=== PATIENT | female | born 1995 | race American Indian/Alaskan Native ===

== ENCOUNTER 2018-10-27 12:40 | Inpatient (IN) | payer MEDICAID ==
[2018-10-27] MEDS ORDERED: NITRATEST PAPER MC ONE (13:08)
[2018-10-27 13:38] LABS: Bilirubin,Urine NEG (Negative); Blood,Urine NEG (Negative); Calcium Oxalate Crystals,Urine 2+; Color,Urine Yellow (Yellow); Mucus,Urine 1+ /HPF
[2018-10-27] MEDS ORDERED: MINERAL OIL PO PRN (14:49)
[2018-10-27] MEDS ORDERED: ZOFRAN IV PRN (14:49)
[2018-10-27] MEDS ORDERED: BRETHINE IVP PRN (14:49)
[2018-10-27] MEDS ORDERED: BRETHINE SUB-Q PRN (14:49)
[2018-10-27] MEDS ORDERED: PITOCin/NS 20 UNIT/1000ML DRIP 20 UNITS/1,000 ML BAG IV SCH (15:00)
[2018-10-27] MEDS ORDERED: XYLOCAINE 2% INFILTRATI ONE (16:00)
[2018-10-27 16:35] LABS: Hematocrit 31.2 % (30.3-42.9); Hemoglobin 10.8 gm/dl (10.1-14.3); Mean Corpuscular HGB Conc 35 % (30-34); Mean Corpuscular Volume 91 fl (79-97); Platelet Count 200 K/mm3 (140-440); Red Blood Count 3.42 M/mm3 (3.65-5.03); Red Cell Distribution Width 14.3 % (13.2-15.2)
--- NOTE | 2018-10-27 18:17 | Ultrasound Report ---
US OB limited INDICATION: presentation, FLORIAN. COMPARISON: None available. FINDINGS: The amniotic fluid index measures 9.7 cm, which is normal. presentation is cephalic. hear t rate measures 143 bpm. Signer Name: Stalin Bach MD Signed: 10/27/2018 6:12 PM Workstation Name: [id number]
[2018-10-27] MEDS: LACTATED RINGERS 1,000 ML IV SCH (18:33)
[2018-10-27] MEDS ORDERED: PITOCin/NS 30 UNIT/500ML 30 UNITS/500 ML BAG IV SCH (19:00)
--- NOTE | 2018-10-27 19:38 | History and Physical Report ---
History of Present Illness Date of examination: 10/27/18 Date of admission: 10/27/18 16:09 Chief complaint: SROM History of present illness: Menstrual History Regularity: regular Menses every: 28 days Duration: 5 LMP: 02/05/2018 LMP reliability: definite LMP character: normal test type: urine test Date: 04/22/2018 BC at conception: none Planned ? no EDC Calculations LMP: 11/12/2018 EDC Confirmation: 11/12/2018 Gestational Age: 10 6/7 weeks Past History : 1 Term Births: 0 Premature Births: 0 Living Children: 0 Para: 0 Mult. Births: 0 Prev : 0 Prev. attempt? 0 Aborta: 0 Elect. Ab: 0 Spont. Ab: 0 Ectopics: 0 Past Medical History: Negative Past Medical History Past Surgical History: negative Past Medical History Anesthesia Complications: negative Anemia: negative Autoimmune Disorder: negative Bleeding Disorder: negative Blood Transfusions: negative Breast Disease: negative Diabetes: negative Heart Disease: negative Hypertension: negative Hepatitis/Liver Disease: negative Kidney Disease/UTI: negative Neurologic/Epilepsy/Migraines: negative Phlebitis/Varicosities: negative Psychiatric: negative Pulmonary Disease/Asthma: negative Thyroid Disease: negative Hospitalizations: negative Surgery (Non-club manager): negative Abnormal PAP: negative Family Hx: Crohns dx - mother and sister Social Hx: Single no ETOH/Drugs/Smoking Infection History Hx of STD: none HIV Risk Eval: low risk Hepatitis B Risk Eval: low risk Varicella/Chicken Pox Status: Unknown Genetic History Congenital Heart Defect: Mom: no Dad: no Moni Disease: Mom: no Dad: no Thalassemia Mom: no Dad: no Neural Tube Defect Mom: no Dad: no Down's Syndrome Mom: no Dad: no Hakeem-Sachs Mom: no Dad: no Sickle Cell Disease/Trait Mom: no Dad: no Hemophilia Mom: no Dad: no Muscular Dystrophy Mom: no Dad: no Cystic Fibrosis Mom: no Dad: no Bar[place] Chorea Mom: no Dad: no Mental Retardation Mom: no Dad: no Fragile X Mom: no Dad: no Other Genetic/Chromosomal Disorder Mom: no Dad: no Child w/other defect Mom: no Dad: no Enviromental Exposures Xray Exposure: no Medication, drug, or alcohol use since LMP: no Chemical/Other Exposure: no Exposure to Cat Liter: no Hx of Parvovirus (Fifth Disease): no Occupational Exposure to Children: none Active Medications: PLUS 27-1 MG ORAL TABLET ( VIT-FE FUMARATE-FA) 1 po daily Current Allergies (reviewed today): * PENICILLAN (Critical) Past History Past Medical History: other (see HPI) Past Surgical History: other (see HPI) 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 (see HPI) Family/Genetic History: other (see HPI) Social history: other (see HPI) - Obstetrical History Expected Date of Delivery: 11/12/18 Actual Gestation: 37 Week(s) 5 Day(s) : 1 Para: 0 Medications and Allergies Allergies Allergy/AdvReac Type Severity Reaction Status Date / Time Penicillins AdvReac Severe Anaphylaxis Verified 10/27/18 12:54 Home Medications Medication Instructions Recorded Confirmed Last Taken Type Acetaminophen [Tylenol] 650 mg PO QID PRN #30 capsule 03/20/18 Unknown Rx Active Meds: Active Medications Ephedrine Sulfate (Ephedrine Sulfate) 10 mg IV Q2M PRN PRN Reason: Hypotension Fentanyl (Sublimaze) 100 mcg IV Q2H PRN PRN Reason: Labor Pain Oxytocin/Sodium Chloride (Pitocin/Ns 20 Unit/1000ml Drip) 20 units in 1,000 mls @ 125 mls/hr IV DIRECT ARMAND Lactated Ringer's (Lactated Ringers) 1,000 mls @ 125 mls/hr IV DIRECT ARMAND Last Admin: 10/27/18 18:33 Dose: 125 mls/hr Documented by: Oxytocin/Sodium Chloride (Pitocin/Ns 30 Unit/500ml) 30 units in 500 mls @ 4 mls/hr IV TITR ARMAND; Protocol Last Admin: 10/27/18 19:25 Dose: 4 ml/hr, 4 mls/hr Documented by: Mineral Oil (Mineral Oil) 30 ml PO QHS PRN PRN Reason: Constipation Ondansetron HCl (Zofran) 4 mg IV Q8H PRN PRN Reason: Nausea And Vomiting Terbutaline Sulfate (Brethine) 0.25 mg SUB-Q ONCE PRN PRN Reason: Hyperstimulation/Hypertonicity Terbutaline Sulfate (Brethine) 0.25 mg IVP ONCE PRN PRN Reason: Hyperstimulation/Hypertonicity Review of Systems All systems: negative Genitourinary: leakage of fluid, contractions - Vital Signs Vital signs: Vital Signs Temp Pulse Resp BP 98.2 F 81 20 113/80 10/27/18 13:09 10/27/18 13:09 10/27/18 13:09 10/27/18 13:09 Temp Pulse Resp BP Pulse Ox 98.4 F 95 H 20 128/76 10/27/18 16:16 10/27/18 19:06 10/27/18 13:09 10/27/18 19:06 - Physical Exam Breasts: Positive: normal Cardiovascular: Regular rate, Normal S1, Normal S2 Lungs: Positive: Clear to auscultation, Normal air movement Abdomen: Positive: normal appearance, soft, normal bowel sounds. Negative: distention, tenderness Genitourinary (Female): Positive: normal external genitalia, normal perenium Vulva: both: normal Vagina: Positive: normal moisture. Negative: discharge Cervix: Negative: lesion, discharge Uterus: Positive: normal size, normal contour Adnexa: both: normal Anus/Rectum: Positive: normal perianal skin, heme negative. Negative: rectal mass, hemorrhoids Extremities: Positive: normal Deep Tendon Reflex Grade: Normal +2 - Obstetrical FHR: auscultation normal Cervical Dilatation: 1 Cervical Effacement Percentage: 30 station: -3 Uterine Contraction Pattern: Irregular Uterine Tone Measurement Phase: Contraction Uterine Contraction Intensity: Mild Results Result Diagrams: 10/27/18 16:14 Abnormal lab results 10/27/18 Range/Units 16:14 RBC 3.42 L (3.65-5.03) M/mm3 MCHC 35 H (30-34) % All other labs normal. Assessment and Plan 23 y.o. IUP at 37w5d presents to triage with c/o SROM at 11 am today. She reports clear fluid with continued leaking since initial gush. She denies any VB or strong regular contractions. +FM. Spec exam by CNM in triage +pooling, clear fluid, nitrizine +. SVE 04/30/-3, unable to determine presenting part d/t pt discomfort during examination. US shows cephalic. Routine admission orders placed in EMR. GBS is negative. VSSAF. DWP plans for pitocin augmentation. She a grees to proceed, desires epidural for pain management but not at this time. Dr. Miller notified admission and assessment.
[2018-10-27] MEDS: SUBLIMAZE IV PRN (23:00)
[2018-10-27] MEDS ORDERED: STADOL IV PRN (23:00)
[2018-10-28] MEDS: SUBLIMAZE IV PRN (01:00)
[2018-10-28] MEDS ORDERED: STADOL ONE (03:24)
--- NOTE | 2018-10-28 03:26 | Event Note ---
Date: 10/28/18 Patient uncomfortable from contractions, palpating mild to moderate, q2-5 on TOCO, but difficulty with tracing contractions. Cat 1 tracing. SVE 2/80/-2, continued leaking of clear fluid from vagina. DWP pros and cons of IUPC and FSE, patient agrees to placement. FSE places without difficulty. Attempt of IUPC placement unsiccessful d/t patient discomfort during examination/placement. Pt vomiting, zofran given. Pt declines epidural at this time. Will give stadol x1 dose. Pitocin decreased from 20mu/min to 16 mu/min. VSSAF. Continue with current POC.
[2018-10-28] MEDS: LACTATED RINGERS 1,000 ML IV SCH (04:45)
[2018-10-28] MEDS ORDERED: METHERGINE IM ONE ×2 (06:25→06:42)
[2018-10-28] MEDS ORDERED: TUCKS PAD TP PRN (06:44)
[2018-10-28] MEDS ORDERED: LANSINOH TP PRN (06:44)
[2018-10-28] MEDS ORDERED: PHENERGAN PO PRN (06:44)
[2018-10-28] MEDS ORDERED: BENADRYL PO PRN (06:44)
[2018-10-28] MEDS ORDERED: TYLENOL PO PRN (06:44)
[2018-10-28] MEDS ORDERED: MILK OF MAGNESIA PO PRN (06:44)
[2018-10-28] MEDS ORDERED: DULCOLAX PR PRN (06:44)
--- NOTE | 2018-10-28 06:52 | Procedure Note ---
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 No distress. Cord clamped and cut. Baby remained on mom's abdomen. Cord blood obtained. Placenta and membrane delivered complete and intact, 3 vessel cord. Pit IVFs. Uterus boggy Several mod sized clots expressed. Methergin IM given left thigh. 1st degree laceration noted no repair indicated. 8/9, EBL 500, Wgt 6-5. Mom and baby remain LDR stable. FF @ umb Lochia mod - Infant A at 1 minute: 8 at 5 minutes: 9 Gender: Male (wgt 6-5)
[2018-10-28] MEDS ORDERED: SODIUM CHLORIDE FLUSH SYRINGE 10 ML IV NR (07:00)
[2018-10-28] MEDS: IBUPROFEN PO SCH ×2 (09:49→18:00)
[2018-10-28 17:44] LABS: Hematocrit 27.3 % (30.3-42.9); Hemoglobin 9.7 gm/dl (10.1-14.3)
[2018-10-29] MEDS: IBUPROFEN PO SCH ×2 (01:48→07:49)
[2018-10-29] MEDS ORDERED: BOOSTRIX IM ONE (06:00)
[2018-10-29] MEDS ORDERED: M-M-R II VACCINE SUB-Q ONE (06:00)
--- NOTE | 2018-10-29 07:53 | Discharge Summary ---
Providers - Providers Date of Admission: 10/27/18 16:09 Date of discharge: 10/29/18 Attending physician: MARCIN PATHAK Primary care physician: ZACK HILL Hospitalization Reason for admission: labor Condition: Good Pertinent studies: post delivery H&H 9.7/27.3, asymptomatic anemia associated with acute blood loss. Procedures: Hospital course: uncomplicated Disposition: DC-01 TO HOME OR SELFCARE - Discharge Diagnoses (1) Normal spontaneous vaginal delivery Status: Acute Core Measure Documentation - Palliative Care Palliative Care/ Comfort Measures: Not Applicable - Core Measures Any of the following diagnoses?: none Exam - Constitutional Vitals: Temp Pulse Resp BP Pulse Ox 98.9 F 100 H 20 118/72 96 10/28/18 23:28 10/28/18 23:28 10/28/18 23:28 10/28/18 23:28 10/28/18 23:28 General appearance: Present: no acute distress, well-nourished - EENT Eyes: Present: PERRL ENT: hearing intact, clear oral mucosa - Neck Neck: Present: supple, normal ROM - Respiratory Respiratory effort: normal Respiratory: bilateral: CTA - Cardiovascular Heart Sounds: Present: S1 & S2. Absent: rub, click - Extremities Extremities: pulses symmetrical, No edema Peripheral Pulses: within normal limits - Abdominal General gastrointestinal: Present: soft, non-tender, non-distended, normal bowel sounds Female genitourinary: Present: normal - Integumentary Integumentary: Present: clear, warm, dry - Musculoskeletal Musculoskeletal: gait normal, strength equal bilaterally - Psychiatric Psychiatric: appropriate mood/affect, intact judgment & insight - Neurologic Neurologic: CNII-XII intact, moves all extremities - Additional findings Additional findings: fundus firm, lochia scant, VSSAF Plan Activity: no restrictions Diet: regular Follow up with: ZACK HILL MD [Primary Care Provider] - 7 Days (Congratulations! Please call [phone] to schedule your son's circumcision in 1 week and your visit in 4 weeks. Bring EMLA cream to your son's visit and await further teaching. Call for any questions or concerns. ) Prescriptions: Lidocain2.5%/Prilocai2.5% [Emla] 5 gm TP ONCE PRN #1 tube PRN Reason: Pain Ibuprofen [Motrin 800 MG tab] 800 mg PO Q8HR PRN #30 tablet PRN Reason: Pain
[2018-10-30 01:57] VITALS: BP 106/55
== END 2018-10-29 16:00 | disposition home or self-care (01) | DRG 775 ==
LOC: TRG 12:40 → LD 16:09 → OB 10-28 08:27
PROVIDERS: ADMIT Obstetrics & Gynecology; ATTEND Obstetrics & Gynecology
PROC: 10E0XZZ Delivery of Products of Conception, External Approach (ICD-10-PCS; principal; 2018-10-28)
PROC: 10H07YZ Insertion of Other Device into Products of Conception, Via Natural or Artificial Opening (ICD-10-PCS; 2018-10-28)
PROC: 3E0234Z Introduction of Serum, Toxoid and Vaccine into Muscle, Percutaneous Approach (ICD-10-PCS; 2018-10-29)
DX: O42.92 Full-term premature rupture of membranes, unspecified as to length of time between rupture and onset of labor (principal); Z37.0 Single live birth; Z3A.37 37 weeks gestation of pregnancy; Z23 Encounter for immunization; Z83.79 Family history of other diseases of the digestive system; Z88.0 Allergy status to penicillin; O62.3 Precipitate labor; O63.9 Long labor, unspecified; O70.0 First degree perineal laceration during delivery; O99.02 Anemia complicating childbirth; D62 Acute posthemorrhagic anemia
CPT/HCPCS: 36415; 76815; 81001; 85014; 85018; 85027; 86592; 86850; 86900; 86901; G0378; J0595; J2210; J2405; J2590; J3010; J7120

== ENCOUNTER 2021-04-10 20:21 | Inpatient (IN) | payer SELFPAY ==
[2021-04-10] MEDS ORDERED: LIDOCAINE (2%) 20 MG/1 ML VIAL 20 ML MDV INFILTRATI ONE ×2 (22:10→22:46)
[2021-04-10] MEDS ORDERED: LOPERAMIDE 2 MG CAP PO PRN (22:46)
[2021-04-10] MEDS ORDERED: TERBUTALINE 1 MG/1 ML INJ SUB-Q PRN (22:46)
[2021-04-10] MEDS ORDERED: METHYLERGONOVINE MALEATE 0.2 MG/ML VIAL IM PRN (22:46)
[2021-04-10] MEDS ORDERED: ACETAMINOPHEN 325 MG TAB PO PRN ×2 (22:46→22:58)
[2021-04-10] MEDS ORDERED: CARBOPROST TROMETHAMINE 250 MCG/1 ML INJ IM PRN (22:46)
[2021-04-10] MEDS ORDERED: MINERAL OIL 30 ML ORAL LIQD PO PRN (22:46)
[2021-04-10] MEDS ORDERED: ePHEDrine SULFATE 50 MG/1 ML INJ IV PRN (22:46)
[2021-04-10] MEDS ORDERED: fentaNYL 100 MCG/2 ML INJ IV PRN (22:46)
[2021-04-10] MEDS ORDERED: BUTORPHANOL 2 MG/1 ML INJ IV PRN (22:46)
--- NOTE | 2021-04-10 22:57 | History and Physical Report ---
History of Present Illness Date of examination: 04/10/21 Date of admission: 04/10/21 21:45 Chief complaint: Contractions History of present illness: 25 y/o at 40 weeks presents to OBT reporting CTX. No VB. Possible LOF. Good FM. ROM Plus (-). SVE= 4 cm. She is admitted in labor. Past History Past Medical History: no pertinent history Past Surgical History: no surgical history Family/Genetic History: none Social history: no significant social history - Obstetrical History Expected Date of Delivery: 04/10/21 Actual Gestation: 40 Week(s) 0 Day(s) : 2 Para: 1 Medications and Allergies Allergies Allergy/AdvReac Type Severity Reaction Status Date / Time Penicillins AdvReac Severe Anaphylaxis Verified 10/27/18 12:54 Home Medications Medication Instructions Recorded Confirmed Last Taken Type Acetaminophen [Tylenol] 650 mg PO QID PRN #30 capsule 03/20/18 Unknown Rx Ibuprofen [Motrin 800 MG tab] 800 mg PO Q8HR PRN #30 tablet 10/29/18 Unknown Rx Lidocain2.5%/Prilocai2.5% [Emla] 5 gm TP ONCE PRN #1 tube 10/29/18 Unknown Rx Active Meds: Active Medications Acetaminophen (Acetaminophen 325 Mg Tab) 650 mg PO Q4H PRN PRN Reason: Pain, Mild (1-3) Butorphanol Tartrate (Butorphanol 2 Mg/1 Ml Inj) 1 mg IV Q2H PRN PRN Reason: Pain, Moderate(4-6) LABOR PAIN Carboprost Tromethamine (Carboprost Tromethamine 250 Mcg/1 Ml Inj) 250 mcg IM ONCE PRN PRN Reason: Uterine Bleeding Ephedrine Sulfate (Ephedrine Sulfate 50 Mg/1 Ml Inj) 10 mg IV Q2M PRN PRN Reason: Hypotension Fentanyl (Fentanyl 100 Mcg/2 Ml Inj) 100 mcg IV Q2H PRN PRN Reason: Pain,Severe (7-10) LABOR PAIN Lactated Ringer's (Lactated Ringers) 1,000 mls @ 125 mls/hr IV DIRECT ARMAND Oxytocin/Sodium Chloride (Pitocin/Ns 30 Unit/500ml) 30 units in 500 mls @ 40 mls/hr IV TITR ARMAND; Protocol Lidocaine (Lidocaine (2%) 20 Mg/1 Ml Vial 20 Ml Mdv) 20 ml INFILTRATI ONCE ONE Stop: 04/10/21 22:47 Loperamide HCl (Loperamide 2 Mg Cap) 2 mg PO ONCE PRN PRN Reason: give with Hemabate Methylergonovine Maleate (Methylergonovine Maleate 0.2 Mg/Ml Vial) 0.2 mg IM ONCE PRN PRN Reason: Uterine Bleeding Mineral Oil (Mineral Oil 30 Ml Oral Liqd) 30 ml PO QHS PRN PRN Reason: Constipation Terbutaline Sulfate (Terbutaline 1 Mg/1 Ml Inj) 0.25 mg SUB-Q ONCE PRN PRN Reason: Hyperstimulation/Hypertonicity Review of Systems All systems: negative - Vital Signs Vital signs: Vital Signs Pulse BP 85 132/95 04/10/21 20:38 04/10/21 20:38 Temp Pulse Resp BP Pulse Ox 98.2 F 75 12 148/90 100 04/10/21 22:45 04/10/21 22:05 04/10/21 21:41 04/10/21 22:05 04/10/21 21:41 - Physical Exam Breasts: Positive: normal Cardiovascular: Regular rate Lungs: Positive: Normal air movement Abdomen: Positive: normal appearance Genitourinary (Female): Positive: normal external genitalia Vulva: both: normal Vagina: Positive: normal moisture Uterus: Positive: enlarged Adnexa: both: normal Anus/Rectum: Positive: normal perianal skin Extremities: Positive: tenderness Deep Tendon Reflex Grade: Normal +2 - Obstetrical FHR: category 1 Uterine Contraction Monitor Mode: External Cervical Dilatation: 4 Uterine Contraction Pattern: Regular Uterine Contraction Intensity: Moderate Results All other labs normal. Ultrasound: pending (Vertex) Assessment and Plan - Patient Problems (1) 40 weeks gestation of Current Visit: Yes Status: Acute Plan to address problem: No care. Ordered panel. GBS unknown. (2) Labor abnormality Current Visit: Yes Status: Acute Plan to address problem: Admit to L&D. Expectant management for now.
[2021-04-10] MEDS ORDERED: LANOLIN/ZINC/DIMETHICONE (LANSINOH) 7 GM TP PRN (22:58)
[2021-04-10] MEDS ORDERED: ONDANSETRON 4 MG/2 ML INJ IV PRN (22:58)
[2021-04-10] MEDS ORDERED: WITCH HAZEL/ GLYCERIN PAD TP PRN (22:58)
[2021-04-10] MEDS ORDERED: MAGNESIUM HYDROXIDE (MOM) ORAL LIQD UDC PO PRN (22:58)
[2021-04-10] MEDS ORDERED: diphenhydrAMINE 25 MG CAP PO PRN (22:58)
--- NOTE | 2021-04-10 22:58 | Procedure Note ---
OB Delivery Note - Delivery Date of Delivery: 04/10/21 Surgeon: KASSANDRA CROWLEY Estimated blood loss: 500cc - Vaginal Delivery presentation: vertex Delivery position: OA Intrapartum events: no care Delivery induction: none Delivery monitor: external FHT Route of delivery: Delivery placenta: spontaneous Episiotomy: none Delivery laceration: 2nd degree Delivery repair: vicryl Anesthesia: local - A at 1 minute: 9 at 5 minutes: 9 Gender: Female
[2021-04-10] MEDS ORDERED: LACTATED RINGERS 1,000 ML IV SCH (23:00)
[2021-04-10] MEDS ORDERED: OXYTOCIN DRIP 30 UNITS/500 ML BAG IV SCH (23:00)
[2021-04-10 23:21] LABS: Hematocrit 34.1 % (30.3-42.9); Hemoglobin 11.3 gm/dl (10.1-14.3); Mean Corpuscular HGB Conc 33 % (30-34); Mean Corpuscular Volume 86 fl (79-97); Platelet Count 272 K/mm3 (140-440); Red Blood Count 3.95 M/mm3 (3.65-5.03); Red Cell Distribution Width 14.2 % (13.2-15.2)
[2021-04-10 23:51] LABS: Bilirubin,Urine NEG (Negative); Blood,Urine LG (Negative); Color,Urine Red (Yellow); Mucus,Urine 1+ /HPF; Urobilinogen,Urine < 2.0 mg/dL (<2.0)
[2021-04-10 23:55] LABS: Alanine Aminotransferase 14 units/L (7-56); Albumin 3.6 g/dL (3.9-5); Blood Urea Nitrogen 6 mg/dL (7-17); Calcium 8.7 mg/dL (8.4-10.2); Hemolysis Index 18
[2021-04-10 23:56] LABS: Protein,Urine >500 mg/dL (Negative); RBC,Urine > 182.0 /HPF (0.0-6.0)
[2021-04-11 00:01] LABS: Hepatitis C Virus Antibody Non-Reactive (NonReactive)
[2021-04-11 00:17] LABS: Amphetamine Screen,Urine PRESUMPTIVE NEGATIVE; Benzodiazepines Screen,Urine PRESUMPTIVE NEGATIVE; Cannabinoid Screen,Urine PRESUMPTIVE NEGATIVE; Cocaine Screen,Urine PRESUMPTIVE NEGATIVE; Methadone Screen,Urine PRESUMPTIVE NEGATIVE; Opiate Screen,Urine PRESUMPTIVE NEGATIVE
[2021-04-11 00:19] LABS: BUN/Creatinine Ratio 10
[2021-04-11] MEDS: IBUPROFEN 600 MG TAB PO SCH ×2 (00:30→18:22)
[2021-04-11 02:10] LABS: Uric Acid 5.5 mg/dL (3.5-7.6)
[2021-04-11] MEDS: HYDROcodone/ACETAMINOPHEN 5-325 MG TAB PO PRN ×2 (02:30→10:48)
[2021-04-11 12:40] LABS: Basophils % (Auto) 0.3 % (0.0-1.8); Eosinophils # (Auto) 0.1 K/mm3 (0.0-0.4); Eosinophils % (Auto) 0.7 % (0.0-4.3); Hematocrit 28.8 % (30.3-42.9); Hemoglobin 9.4 gm/dl (10.1-14.3); Lymphocytes # (Auto) 2.3 K/mm3 (1.2-5.4); Lymphocytes % (Auto) 18.7 % (13.4-35.0); Mean Corpuscular HGB Conc 33 % (30-34); Mean Corpuscular Volume 87 fl (79-97); Monocytes # (Auto) 0.9 K/mm3 (0.0-0.8); Monocytes % (Auto) 7.2 % (0.0-7.3); Platelet Count 231 K/mm3 (140-440); Red Blood Count 3.31 M/mm3 (3.65-5.03); Red Cell Distribution Width 14.5 % (13.2-15.2)
--- NOTE | 2021-04-11 13:22 | Progress Note ---
Assessment and Plan A: S/P P: Continue routine pp orders D/C home tomm if stable Subjective - Subjective Date of service: 04/11/21 Principal diagnosis: s/p Patient reports: appetite normal, voiding normally, pain well controlled, ambulating normally Romeo: doing well, bottle feeding Objective - Vital Signs Latest vital signs: Vital Signs Temp Pulse Resp BP BP Pulse Ox Pulse Ox 04/11/21 07:31 98.0 F 79 20 134/85 98 04/11/21 04:34 98.7 F 92 H 18 129/79 98 04/11/21 03:30 18 04/11/21 02:30 18 04/11/21 01:13 98.4 F 86 18 132/82 99 04/11/21 01:00 98 04/11/21 00:53 100 H 98 04/11/21 00:48 97 H 99 04/11/21 00:43 105 H 98 04/11/21 00:39 82 134/65 93 04/11/21 00:38 105 H 98 04/11/21 00:33 114 H 98 04/11/21 00:28 133 H 97 04/11/21 00:24 90 132/62 04/11/21 00:23 95 H 97 04/11/21 00:18 93 H 99 04/11/21 00:13 78 100 04/11/21 00:09 88 135/70 04/11/21 00:08 99 H 100 04/11/21 00:03 87 98 04/10/21 23:58 87 99 04/10/21 23:54 76 150/90 04/10/21 23:53 81 100 04/10/21 23:48 87 99 04/10/21 23:43 102 H 100 04/10/21 23:38 78 99 04/10/21 23:24 100 H 98 04/10/21 23:19 85 100 04/10/21 23:15 75 150/69 04/10/21 23:14 74 100 04/10/21 23:09 82 98 04/10/21 23:04 77 99 04/10/21 23:00 78 155/73 04/10/21 22:59 95 H 150/102 99 04/10/21 22:45 98.2 F 04/10/21 22:05 75 148/90 04/10/21 21:41 97.6 F 12 148/90 100 04/10/21 20:38 85 132/95 Intake and Output 04/10/21 04/11/21 04/11/21 22:59 06:59 14:59 Other: Weight 210 lb Estimated Blood Loss 500 - Exam Breasts: Present: normal Abdomen: Present: normal appearance, soft, normal bowel sounds Vulva: both: normal Uterus: Present: normal, firm, fundal height below umbilicus Extremities: Present: normal Incision: Present: normal, intact - Labs Labs: Abnormal lab results 04/10/21 04/10/21 04/10/21 Range/Units 09:11 21:39 21:39 WBC (4.5-11.0) K/mm3 RBC (3.65-5.03) M/mm3 Hgb (10.1-14.3) gm/dl Hct (30.3-42.9) % Emmet # (Auto) (0.0-0.8) K/mm3 Seg Neutrophils % (40.0-70.0) % Seg Neutrophils # (1.8-7.7) K/mm3 Carbon Dioxide 18 L (22-30) mmol/L BUN 6 L (7-17) mg/dL Lactate Dehydrogenase 269 H (91-180) units/L Albumin 3.6 L (3.9-5) g/dL Urine WBC (Auto) (0.0-6.0) /HPF Urine Creatinine (0.1-20.0) mg/dL Urine Total Protein (5-11.8) mg/dL SARS-CoV-2 (PCR) Positive A (Negative) 04/10/21 04/10/21 04/11/21 Range/Units 23:00 23:00 12:17 WBC 12.4 H (4.5-11.0) K/mm3 RBC 3.31 L (3.65-5.03) M/mm3 Hgb 9.4 L (10.1-14.3) gm/dl Hct 28.8 L (30.3-42.9) % Emmet # (Auto) 0.9 H (0.0-0.8) K/mm3 Seg Neutrophils % 73.1 H (40.0-70.0) % Seg Neutrophils # 9.1 H (1.8-7.7) K/mm3 Carbon Dioxide (22-30) mmol/L BUN (7-17) mg/dL Lactate Dehydrogenase (91-180) units/L Albumin (3.9-5) g/dL Urine WBC (Auto) 9.0 H (0.0-6.0) /HPF Urine Creatinine 179.0 H (0.1-20.0) mg/dL Urine Total Protein 167 H (5-11.8) mg/dL SARS-CoV-2 (PCR) (Negative)
--- NOTE | 2021-04-11 13:28 | Discharge Summary ---
Providers - Providers Date of Admission: 04/10/21 21:45 Date of discharge: 04/12/21 Attending physician: KASSANDRA CROWLEY MD Primary care physician: ZACK HILL Hospitalization Reason for admission: active labor Delivery: Episiotomy: none Laceration: 2nd degree Incision: normal, intact Other procedures: none complications: none Discharge diagnosis: IUP at term delivered baby: female Hospital course: Pt was admitted to [facility] in active labor. She had a w/o pp complications. See H&p, delivery summary, and pp notes. Condition at discharge: Stable Disposition: HOME / SELF CARE / HOMELESS Plan - Discharge Medications Prescriptions: Ibuprofen [Motrin 600 MG tab] 600 mg PO Q6HR PRN #30 tablet PRN Reason: Menstrual Cramps - Provider Discharge Summary Activity: routine, no sex for 6 weeks, no heavy lifting 4 weeks, no strenuous exercise Diet: routine Instructions: routine Additional instructions: [] Smoking cessation referral if applicable(refer to patient education folder for contact #) [] Refer to [facility]'s [facility] Booklet Call your doctor immediately for: * Fever > 100.5 * Heavy vaginal bleeding ( >1 pad per hour) * Severe persistent headache * Shortness of breath * Reddened, hot, painful area to leg or breast * Drainage or odor from incision. * Keep incision clean and dry at all times and follow doctor's instructions regarding bathing/showering - Follow up plan Follow up: ZACK HILL MD [Primary Care Provider] - 6 Weeks
[2021-04-12] MEDS: HYDROcodone/ACETAMINOPHEN 5-325 MG TAB PO PRN ×2 (05:00→12:34)
[2021-04-12] MEDS: IBUPROFEN 600 MG TAB PO SCH (10:35)
[2021-04-12 17:08] VITALS: BP 123/74
== END 2021-04-12 17:25 | disposition home or self-care (01) | DRG 807 ==
LOC: TRG 20:21 → APU 20:22 → TRG 21:45 → LD 21:45 → OB 04-11 01:10
PROVIDERS: ADMIT Obstetrics & Gynecology Gynecology; ATTEND Obstetrics & Gynecology Gynecology
PROC: 10E0XZZ Delivery of Products of Conception, External Approach (ICD-10-PCS; principal; 2021-04-10)
PROC: 0KQM0ZZ Repair Perineum Muscle, Open Approach (ICD-10-PCS; 2021-04-10)
DX: O70.1 Second degree perineal laceration during delivery (principal); Z37.0 Single live birth; Z3A.40 40 weeks gestation of pregnancy; Z88.0 Allergy status to penicillin
CPT/HCPCS: 36415; 80053; 80307; 81001; 82570; 83615; 84112; 84156; 84550; 85025; 85027; 86592; 86706; 86762; 86803; 86850; 86900; 86901; 87086; 87806; G0378; U0003